=== PATIENT | male | born 1980 | race Caucasian/White ===

== ENCOUNTER 2016-04-15 00:21 | Observation (INO) | END 2016-04-17 16:46 | disposition home or self-care (01) | DX: R42 Dizziness and giddiness (principal); E78.5 Hyperlipidemia, unspecified; E78.1 Pure hyperglyceridemia; E66.01 Morbid (severe) obesity due to excess calories; Z68.33 Body mass index [BMI] 33.0-33.9, adult; D72.829 Elevated white blood cell count, unspecified | CPT/HCPCS: 36415; 70450; 70551; 80048; 80061; 80306; 80307; 81001; 83036; 83735; 84100; 84484; 85025; 85610; 85730; 93005; 96374; J0780; J7030; Z7500; Z7502; Z7610 ==